=== PATIENT | male | born 1950 | race Caucasian/White ===

== ENCOUNTER → 2020-07-04 | Day surgery (SDC) | payer MEDICARE, OTHER ==
[~2020-07-04] MED LIST: ASPIRIN EC81 MG PO; FAMCICLOVIR500 MG PO; HCTZ25 MG PO; LOSARTAN POTASS50 MG PO; PRAVACHOL20 MG PO; PROTONIX 40MG T40 MG PO; TRIAMCINOLONE A15 G1 EXT; UROCIT-K10 MEQ PO; VITAMIN B-12250 MCG PO; VITAMIN D350 MC5 PO; XANAX0.25 MG PO; ZINC50 M2 PO
[2020-07-04 08:25] LABS: HCT 40.5 % (42.0-52.0); HGB 14.4 g/dl (13.2-18.0); MCH 33.9 pg (25.0-31.0); MCHC 35.6 g/dL (32.0-36.0); MCV 95.3 fL (78.0-100.0); MPV 11.3 fL (6.0-9.5); RBC 4.25 M/uL (4.70-6.00); RDW 11.9 % (11.5-14.0); WBC 5.7 K/uL (4.0-10.5)
[2020-07-04 08:57] LABS: ALBUMIN 3.9 g/dL (3.4-5.0); BILIRUBIN - TOTAL 0.5 mg/dL (0.2-1.0); BUN/CREAT RATIO (CALC) 14.8 RATIO; CREATININE 0.88 mg/dL (0.67-1.17); GLOBULIN (CALCULATION) 3.4 g/dL; POTASSIUM 3.5 mmol/L (3.5-5.1); TOTAL PROTEIN 7.3 g/dL (6.4-8.2)
== END | disposition home or self-care (01) ==
LOC: FAS 06:50
PROVIDERS: Surgery
DX: Z12.11 Encounter for screening for malignant neoplasm of colon (principal); D12.0 Benign neoplasm of cecum; K63.5 Polyp of colon; K57.30 Diverticulosis of large intestine without perforation or abscess without bleeding; F41.9 Anxiety disorder, unspecified; K21.9 Gastro-esophageal reflux disease without esophagitis; I10 Essential (primary) hypertension; E78.00 Pure hypercholesterolemia, unspecified; K58.9 Irritable bowel syndrome, unspecified; M32.9 Systemic lupus erythematosus, unspecified; Z87.891 Personal history of nicotine dependence; Z79.82 Long term (current) use of aspirin; Z79.899 Other long term (current) drug therapy
CPT/HCPCS: 36415; 80053; 88305; J0690; J1610; J2704; J7120

== ENCOUNTER → 2021-08-28 | Day surgery (SDC) | payer MEDICARE, OTHER ==
[~2021-08-28] VITALS: Ht 185.4 cm; Wt 113.4 kg
[~2021-08-28] MED LIST changes: +NORCO 5-325 TA1 EACH PO; +ONDANSETRON ODT8 MG PO; +POTASSIUM CHLO10 ME2 PO; +ZOLOFT50 MG PO
== END | disposition home or self-care (01) ==
LOC: FAS 08:34
DX: K80.10 Calculus of gallbladder with chronic cholecystitis without obstruction (principal); K76.0 Fatty (change of) liver, not elsewhere classified; K42.9 Umbilical hernia without obstruction or gangrene; I10 Essential (primary) hypertension; K21.9 Gastro-esophageal reflux disease without esophagitis; I42.9 Cardiomyopathy, unspecified; F41.9 Anxiety disorder, unspecified; Z87.891 Personal history of nicotine dependence; Z79.82 Long term (current) use of aspirin; Z79.899 Other long term (current) drug therapy
CPT/HCPCS: 74300; 93005; C1758; J2250; J2405; J3010; J7120; Q9967